=== PATIENT | female | born 1945 | race Caucasian/White ===

== ENCOUNTER → 2020-10-09 12:00 | Outpatient (CLI) | payer MEDICARE, OTHER, SELFPAY ==
[2020-10-09 13:06] LABS: Add Manual Diff / Slide Review NO; Basophils Absolute Auto 100 /uL (0-100); Eosinophils Absolute Auto 200 /uL (0-450); Eosinophils Percent Auto 3.2 % (2-4); Hemoglobin 15.2 g/dL (12.0-16.0); Lymphocytes Absolute Auto 1900 /uL (1100-4500); Lymphocytes Percent Auto 36.7 % (25-40); Mean Corpuscular HGB Conc 34.5 % (30-36); Mean Corpuscular Hemoglobin 32.3 PG (26-34); Mean Corpuscular Volume 93.4 fL (80-100); Monocytes Absolute Auto 500 /uL (0-900); Neutrophils Absolute Auto 2500 /uL (1500-7000); Neutrophils Percent Auto 49.1 % (50-75); Platelet Count 224 X10^3/uL (150-400); Red Blood Cell Count 4.71 X10^6/uL (4.0-5.2); White Blood Cell Count 5.1 X10^3/uL (4.5-11.0)
[2020-10-09 13:12] LABS: Alanine Aminotransferase 21 IU/L (<35); Albumin 4.2 g/dL (3.5-5.0); Albumin Globulin Ratio 1.3 (1.0-2.8); Alkaline Phosphatase 68 U/L (38-126); Aspartate Aminotransferase 30 IU/L (14-36); Bilirubin Total 0.8 mg/dL (0.2-1.3); Blood Urea Nitrogen 7 mg/dL (7-17); Calcium 9.6 mg/dL (8.4-10.2); Carbon Dioxide 29 mmol/L (22-32); Chloride 98 mmol/L (98-107); Cholesterol 212 mg/dL (140-199); Estimated Glomerular Filt Rate > 60.0 mL/min (>60); Globulin 3.2 g/dL (1.7-4.1); Glucose 104 mg/dL (80-110); HDL Cholesterol 76 mg/dL (40-60); HEMOLYSIS < 15 (0-50); LDL Cholesterol Calculated 116 mg/dL (<100); Potassium 4.8 mmol/L (3.4-5.1); Sodium 133 mmol/L (137-145); Total Protein 7.4 g/dL (6.3-8.2); Triglycerides 102 mg/dL (35-150)
== END ==
PROVIDERS: Family Provider Internal Medicine; PCP Internal Medicine; Referring Provider Internal Medicine; Visit Provider Internal Medicine
DX: E78.2 Mixed hyperlipidemia (principal); I10 Essential (primary) hypertension; K76.0 Fatty (change of) liver, not elsewhere classified; R94.5 Abnormal results of liver function studies
CPT/HCPCS: 36415; 80053; 80061; 84443; 85025

== ENCOUNTER → 2022-01-09 10:22 | Outpatient (CLI) | payer MEDICARE, OTHER, SELFPAY ==
--- NOTE | 2022-01-09 10:24 | DI.US.S_ITS ---
PROCEDURE: US HIP LIMITED INDICATIONS: PALPABLE LUMP RIGHT HIP TECHNIQUE: Real-time focused scanning was performed of the abdomen, with image documentation. COMPARISON: None. FINDINGS: At the patient indicated area of clinical concern, the soft tissues about the right hip, an avascular oblong structure with fine linear striations is present measuring 3.4 x 1.4 x 4.2 cm. It is approximately 1-2 mm deep to the skin surface. IMPRESSION: A 4.2 cm mass is present in the soft tissues about the right hip corresponding to the patient indicated area of concern. 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 Clinical follow-up is recommended and if the finding increases in size or the patient develops symptoms such as pain, a repeat examination or MRI could be obtained. Dictated by: Rm Campos M.D. on 01/09/2022 at 21:32 Approved by: Rm Campos M.D. on 01/09/2022 at 21:35
== END ==
PROVIDERS: Family Provider Internal Medicine; PCP Internal Medicine; Referring Provider Internal Medicine; Visit Provider Internal Medicine
DX: R22.2 Localized swelling, mass and lump, trunk (principal)
CPT/HCPCS: 76705

== ENCOUNTER 2024-07-16 14:58 | Emergency (ER) | payer MEDICARE, OTHER, SELFPAY ==
[2024-07-16] VITALS (11 sets, daily range): BP systolic 159–198; BP diastolic 76–95; PULSE 76–91; RESP 16–38; TEMP 36.6; O2SAT 88–99; BMI 26.7
--- NOTE | 2024-07-16 15:11 | DI.RAD.S_ITS ---
PROCEDURE: XR CHEST 1V INDICATIONS: chest pain TECHNIQUE: One view of the chest was acquired. COMPARISON: None. FINDINGS: Surgical changes and devices: None. Lungs and pleura: Lungs are clear. No pleural effusions or pneumothorax. Mediastinum: Mediastinal contours appear normal. Heart size is normal. Bones and chest wall: No suspicious bony lesions. Overlying soft tissues appear unremarkable. IMPRESSION: No acute cardiopulmonary abnormality is seen. Dictated by: Ata Boone M.D. on 07/16/2024 at 15:56 Approved by: Ata Boone M.D. on 07/16/2024 at 15:58
--- NOTE | 2024-07-16 15:33 | EKG_ITS ---
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
[2024-07-16 15:34] LABS: Add Manual Diff / Slide Review NO; Basophils Absolute Auto 100 /uL (0-100); Basophils Percent Auto 1.1 % (0-2); Eosinophils Absolute Auto 0 /uL (0-450); Eosinophils Percent Auto 0.3 % (2-4); Hematocrit 47.7 % (36-46); Hemoglobin 16.5 g/dL (12.0-16.0); Lymphocytes Absolute Auto 1400 /uL (1100-4500); Lymphocytes Percent Auto 21.7 % (25-40); Mean Corpuscular HGB Conc 34.6 % (30-36); Mean Corpuscular Hemoglobin 31.9 PG (26-34); Mean Corpuscular Volume 92.3 fL (80-100); Monocytes Absolute Auto 600 /uL (0-900); Monocytes Percent Auto 8.5 % (3-14); Neutrophils Absolute Auto 4500 /uL (1500-7000); Neutrophils Percent Auto 68.4 % (50-75); PTT Partial Thromboplastin Tim 38 SECONDS (25.1-36.5); Platelet Count 287 X10^3/uL (150-400); Red Blood Cell Count 5.16 X10^6/uL (4.0-5.2); White Blood Cell Count 6.6 X10^3/uL (4.5-11.0)
[2024-07-16 16:09] LABS: Appearance Urine UA CLEAR; Bilirubin Urine UA 1+ (NEGATIVE); Color Urine UA YELLOW; Glucose Urine UA NEGATIVE (Negative); Ketones Urine UA 1+ (NEGATIVE); Leukocyte Esterase Urine UA TRACE (NEGATIVE); Nitrite Urine UA NEGATIVE (Negative); Occult Blood Urine UA NEGATIVE (Negative); Protein Urine UA 2+ (Negative); Specific Gravity Urine UA 1.025 (1.000-1.035); Urobilinogen Urine UA 0.2 E.U./dL (0.2)
[2024-07-16 16:12] LABS: Alanine Aminotransferase 19 IU/L (<35); Albumin 4.7 g/dL (3.5-5.0); Albumin Globulin Ratio 1.7 (1.0-2.8); Alkaline Phosphatase 73 U/L (38-126); Aspartate Aminotransferase 27 IU/L (14-36); Bilirubin Total 0.7 mg/dL (0.2-1.3); Blood Urea Nitrogen 9 mg/dL (7-17); Calcium 9.8 mg/dL (8.4-10.2); Carbon Dioxide 24 mmol/L (22-32); Chloride 95 mmol/L (98-107); Creatine Kinase 46 U/L (30-135); Estimated Glomerular Filt Rate > 60 mL/min (>60); Globulin 2.8 g/dL (1.7-4.1); Glucose 105 mg/dL (80-110); HEMOLYSIS 16 (0-50); Lipase 78 U/L (23-300); Magnesium 1.5 mg/dL (1.6-2.3); Potassium 4.4 mmol/L (3.4-5.1); Sodium 130 mmol/L (137-145); Total Protein 7.5 g/dL (6.3-8.2)
[2024-07-16 16:24] LABS: NT-proBNP (BNP-Adult 18+) 241 pg/mL (<450); Troponin I < 0.012 ng/mL (0.01-0.034)
[2024-07-16 16:39] LABS: Bacteria Urine Few (2-10); Ictotest Urine Negative (Negative); RBC Urine None Seen (0-5/HPF); Squamous Epithelial Cell Urine 5-10 /HPF (0-5/HPF); Urine Volume 10mL (spun); WBC Urine 1-5/HPF (0-5/HPF)
[2024-07-16 16:40] LABS: Culture Indicated Urine Cult Not Indicated
--- NOTE | 2024-07-16 19:34 | PC.NURSE ---
Patient states she has had difficulty swallowing for the last week. She feels when she eats the food wont go down and she starts to feel pressure in the chest.
--- NOTE | 2024-07-16 19:41 | PC.NURSE ---
Patient states all her symptoms relate back to eating.
--- NOTE | 2024-07-16 20:13 | ED.DIZZY ---
HPI - Dizziness General Chief Complaint: Dizziness Stated Complaint: dizzy, off balance, vomitting Time Seen by Provider: 07/16/24 20:13 History of Present Illness HPI Narrative: 78-year-old female with a past medical history of hypertension hyperlipidemia presents to the emergency department for multiple complaints. She states that she has been having intermittent dizziness that she describes as feeling off balance ongoing for the past several years, she states that she has been talking with her primary care doctor, Dr. Mendez about this for the past 3 years, she states that they are unsure of what is causing it however she states that she feels like it has been increasing over the past several months. She is also complaining that she is feeling globus sensation whenever she is swallowing her food, she states that it is difficult to swallow thicker foods has been having to drink/eat more liquid, she states that this has been ongoing persistent for the past several months as well but gotten worse over the past week. She denies any other symptoms such as headache visual disturbances chest pain shortness breath fever chills nausea vomiting abdominal pain or any other GI/ symptoms at this time. Related Data Previous Rx's Medication Instructions Recorded hydrocodone 5 mg-acetaminophen 325 2 tab PO Q6H PRN pain #10 tabs 01/22/22 mg tablet famotidine 20 mg tablet (Pepcid) 20 mg PO DAILY 1 month #30 tabs 07/16/24 meclizine 25 mg tablet 25 mg PO BID PRN dizziness 1 week 07/16/24 #14 tabs Allergies Allergy/AdvReac Type Severity Reaction Status Date / Time shellfish derived Allergy Intermediate Anaphylaxis Verified 01/25/22 10:57 ? lisinopril AdvReac Intermediate heart Verified 01/25/22 10:57 fluttering, dizziness, legs numb after 3 days bee stings Allergy Intermediate Swelling Uncoded 01/25/22 10:57 histamines Allergy Intermediate Unknown Uncoded 01/25/22 10:57 Review of Systems Review of Systems Narrative: General: Denies fever, chills, weight loss HEENT: Denies headache, eye drainage, eye irritation, head trauma, sore throat, voice change Cardiovascular: Denies any chest pain, palpitations, tachycardia Respiratory: Denies any shortness of breath, cough, wheeze, stridor GI/: Positive globus sensation with swallowing Denies any abdominal pain, nausea, vomiting, diarrhea, bright red blood per rectum, melanotic stools, urinary frequency, urinary retention, dysuria, hematuria MSK: Denies any joint pain, muscle pains, swelling Skin: Denies any rashes, lesions, discoloration Neuro: Positive lightheadedness, dizziness Psych: Denies SI/HI Patient History Medical History Abnormal LFTs Essential hypertension Fatty (change of) liver, not elsewhere classified Hyperlipidemia, mixed (02/20/12) Psoriasis Unspecified asthma, uncomplicated Surgical History S/P cataract extraction Social History Smoking Status: Former smoker Smoking Status: Former smoker Exam Narrative Exam Narrative: General: Cooperative, comfortable, well-developed, not in acute distress HEENT: Normocephalic, atraumatic, PERRLA, normal sclera, eyelids normal, Neck: Active full range of motion, atraumatic Chest: Normal to inspection, negative crepitus, no overlying erythema ecchymosis Respiratory: Normal respiratory effort, not in acute respiratory distress, clear to auscultation bilaterally negative cough, wheeze, tachypnea, rhonchi, rales Cardiology: Regular rate rhythm negative gallop, murmur, rubs GI/: Normal to inspection, soft, nonrigid, no tenderness to palpation, exam deferred MSK: Full range of active range of motion of all 4 extremities, atraumatic Skin: No rashes lesions noted Neuro: NIH of 0, no focal deficits Alert awake oriented x3, moves all 4 extremities spontaneously, cranial nerves intact, able to answer all questions appropriately follows commands appropriately Psych: Cooperative, negative suicidal or homicidal ideations Initial Vital Signs Initial Vital Signs: Vital Signs Temperature 97.8 F 07/16/24 15:01 Pulse Rate 91 H 07/16/24 15:01 Respiratory Rate 16 07/16/24 15:01 Blood Pressure 189/95 H 07/16/24 15:01 Pulse Oximetry 99 07/16/24 15:01 Oxygen Delivery Method Room Air 07/16/24 15:01 Course Orders Ordered: ED Orders 07/16/24 15:11 XR chest 1V Stat EKG-12 Lead Stat 07/16/24 15:15 Complete Blood Count AUTO DIFF Stat PTT Partial Thromboplastin Adams Stat Prothrombin Time INR Stat 07/16/24 15:30 Ictotest Urine Stat Urinalysis and Microscopic Stat 07/16/24 15:50 Comprehensive Metabolic Panel Stat Lipase Stat Magnesium Stat NT-proBNP (BNP-Adult 18+) Stat Troponin & CK Cardiac Panel Stat 07/16/24 20:13 CT angio head and neck Stat CT head/brain wo con Stat Discontinued Medications Famotidine (Famotidine 20 Mg/2 Ml Vial) 20 mg IV NOW ONE Stop: 07/16/24 20:21 Last Admin: 07/16/24 20:33 Dose: 20 mg Documented By: MR Vital Signs Vital signs: Vital Signs - 8 hr 07/16/24 15:01 07/16/24 19:18 07/16/24 19:19 Temperature 97.8 F Pulse Rate 91 H 79 Respiratory Rate 16 Blood Pressure 189/95 H Pulse Oximetry 99 88 L 96 Oxygen Delivery Method Room Air 07/16/24 19:19 07/16/24 19:30 07/16/24 19:31 Temperature Pulse Rate 85 84 Respiratory Rate 25 H 28 H Blood Pressure 198/94 H Pulse Oximetry 97 97 Oxygen Delivery Method 07/16/24 19:31 07/16/24 20:00 07/16/24 20:00 Temperature Pulse Rate 89 Respiratory Rate 38 H Blood Pressure 159/76 H 181/86 H Pulse Oximetry 98 Oxygen Delivery Method 07/16/24 20:34 07/16/24 20:34 Temperature Pulse Rate 84 Respiratory Rate 25 H Blood Pressure 186/88 H Pulse Oximetry 96 Oxygen Delivery Method MDM - Dizziness Differential Diagnosis Differential diagnosis: Likely other (Electrolyte abnormality, esophageal spasm, CVA, BPPV, ACS,) Lab Data 07/16/24 15:15 07/16/24 15:50 Labs: Lab Results 07/16/24 07/16/24 07/16/24 Range/Units 15:15 15:30 15:50 WBC 6.6 (4.5-11.0) X10^3/uL RBC 5.16 (4.0-5.2) X10^6/uL Hgb 16.5 H (12.0-16.0) g/dL Hct 47.7 H (36-46) % MCV 92.3 (80-100) fL MCH 31.9 (26-34) PG MCHC 34.6 (30-36) % RDW 13.0 (11.6-14.8) % Plt Count 287 (150-400) X10^3/uL Neut % (Auto) 68.4 (50-75) % Lymph % (Auto) 21.7 L (25-40) % [place] % (Auto) 8.5 (3-14) % Eos % (Auto) 0.3 L (2-4) % Baso % (Auto) 1.1 (0-2) % Neut # (Auto) 4500 (9387-0911) /uL Lymph # (Auto) 1400 (5103-1098) /uL [place] # (Auto) 600 (0-900) /uL Eos # (Auto) 0 (0-450) /uL Baso # (Auto) 100 (0-100) /uL PT 11.0 (9.4-12.5) SECONDS INR 1.0 (0.9-1.3) APTT 38 H (25.1-36.5) SECONDS Sodium 130 L (137-145) mmol/L Potassium 4.4 (3.4-5.1) mmol/L Chloride 95 L (98-107) mmol/L Carbon Dioxide 24 (22-32) mmol/L BUN 9 (7-17) mg/dL Creatinine 0.53 (0.52-1.04) mg/dL Estimated GFR > 60 (>60) mL/min BUN/Creatinine Ratio 17.0 (6-22) Glucose 105 (80-110) mg/dL Calcium 9.8 (8.4-10.2) mg/dL Magnesium 1.5 L (1.6-2.3) mg/dL Total Bilirubin 0.7 (0.2-1.3) mg/dL AST 27 (14-36) IU/L ALT 19 (<35) IU/L Alkaline Phosphatase 73 (38-126) U/L Total Creatine Kinase 46 (30-135) U/L Troponin I < 0.012 (0.01-0.034) ng/mL NT-Pro-B Natriuret Pep 241 (<450) pg/mL Total Protein 7.5 (6.3-8.2) g/dL Albumin 4.7 (3.5-5.0) g/dL Globulin 2.8 (1.7-4.1) g/dL Albumin/Globulin Ratio 1.7 (1.0-2.8) Lipase 78 (23-300) U/L Urine Color Yellow Urine Appearance Clear Urine pH 6.0 (4.5-8.0) Ur Specific [place] 1.025 (1.000-1.035) Urine Protein 2+ H (Negative) Urine Glucose (UA) Negative (Negative) g/dL Urine Ketones 1+ H (NEGATIVE) Urine Occult Blood Negative (Negative) Urine Nitrate Negative (Negative) Urine Bilirubin 1+ H (NEGATIVE) Ur Bilirubin Confirm Negative (Negative) Urine Urobilinogen 0.2 (0.2) E.U./dL Ur Leukocyte Esterase Trace H (NEGATIVE) Urine RBC None seen (0-5/HPF) Urine WBC 1-5/hpf (0-5/HPF) Ur Squamous Epith Cells 5-10 /hpf H (0-5/HPF) Urine Bacteria Few (2-10) H (None) Ur Culture Indicated? Cult not indicated Vol Urine Centrifuged 10ml (spun) Urine Dip Bedside Urine Glucose Negative Bedside Urine Bilirubin - Negative Bedside Urine Ketone + 15 Urine Specific [place] 1.020 Bedside Urine Occult Blood - Negative Bedside Urine pH 6.0 Bedside Urine Protein + 30 Bedside Urine Urobilinogen - Negative Bedside Urine Nitrite - Negative Bedside Urine Leukocytes - Negative Esterase Imaging Data Chest x-ray: Radiologist's Impression: [address] [address] XRay Report Signed Patient: Samantha Belle MR#: [id number] : 1945 Acct:[id number] Age/Sex: 78 / F Date of Service: 07/16/24 Loc: ED Accession Number: [id number] Procedure: XR chest 1V Ordering Provider: Elisabeth Dean D.O. PROCEDURE: XR CHEST 1V INDICATIONS: chest pain TECHNIQUE: One view of the chest was acquired. COMPARISON: None. FINDINGS: Surgical changes and devices: None. Lungs and pleura: Lungs are clear. No pleural effusions or pneumothorax. Mediastinum: Mediastinal contours appear normal. Heart size is normal. Bones and chest wall: No suspicious bony lesions. Overlying soft tissues appear unremarkable. IMPRESSION: No acute cardiopulmonary abnormality is seen. CT scan - head: Radiologist's Impression: [address] [address] [address] Scan Report Signed Patient: Samantha Belle MR#: [id number] : 1945 Acct:[id number] Age/Sex: 78 / F Date of Service: 07/16/24 Loc: ED Accession Number: [id number] Procedure: CT head/brain wo con Ordering Provider: Ernie Cohen D.O. PROCEDURE: CT HEAD/BRAIN WO CON INDICATIONS: Dizziness TECHNIQUE: Noncontrast 4.5 mm thick angled axial sections acquired from the foramen magnum to the vertex, with coronal and sagittal reformats. For radiation dose reduction, the following was used: automated exposure control, adjustment of mA and/or kV according to patient size. COMPARISON: None. FINDINGS: Image quality: Diagnostic CSF spaces: Basal cisterns are patent. Lateral ventricles are symmetric. Volume: Vascular calcifications. Periventricular white matter disease is commonly seen with chronic microangiopathy. Volume loss is present. These findings are moderate Brain: No intracranial hemorrhage. Morrison-white differentiation is grossly maintained. Craniofacial structures: No displaced fracture. Sinuses are clear. Orbits are intact. IMPRESSION: No acute intracranial pathology. If there is high concern for infarct, consider MRI CTA - brain/neck: Radiologist's Impression: [place] [id number] CT Scan Report Signed Patient: Samantha Belle MR#: [id number] : 1945 Acct:[id number] Age/Sex: 78 / F Date of Service: 07/16/24 Loc: ED Accession Number: [id number] Procedure: CT angio head and neck Ordering Provider: Ernie Cohen D.O. PROCEDURE: CT ANGIO HEAD AND NECK INDICATIONS: Dizziness TECHNIQUE: After the administration of intravenous contrast, 1 mm thick sections acquired from the aortic arch through the [place] of [place]. 3-dimensional yptftpd-coxlrczrr-reglrkfnys (MIP) and/or volume rendering reformats were acquired of the central intracranial vasculature and neck separately. For radiation dose reduction, the following was used: automated exposure control, adjustment of mA and/or kV according to patient size. COMPARISON: None. FINDINGS: Image quality: Diagnostic HEAD ANGIOGRAPHY: Anterior circulation: ICAs: Mild cavernous and supraclinoid calcifications ACAs: Patent. MCAs: Normal and symmetric AComm: No aneurysm Venous sinuses: Not well assessed on this study, no occlusive thrombus Posterior circulation: Dominance: Right Vertebral arteries: Moderate focal intracranial calcifications bilaterally Basilar artery: Patent PComms: No aneurysm specialized language instructor: Patent NECK ANGIOGRAPHY: Aortic arch and subclavian arteries: Mild calcifications CCAs: Patent ICA origins (by NASCET criteria): No hemodynamically significant narrowing. ICAs: No stenosis, occlusion or aneurysm. ECAs: Origins are patent. Vertebral arteries: Patent Soft tissues: No significant mass, aneurysm, or lymphadenopathy Lung apices: No pneumothorax Bones: Degenerative changes. No aggressive appearing osseous finding. IMPRESSION: No high-grade stenosis or large vessel occlusion. Moderate focal calcifications seen focally in the vertebral arteries. Lower grade atherosclerotic calcifications seen elsewhere. If there is high concern for infarct, consider MRI. Any quantitative measurements of stenosis were performed using NASCET criteria. ECG Data Interpretation: EKG interpreted ED physician sinus 83 beats per minute QTC [address] changes no STEMI MDM Narrative Medical decision making narrative: 78-year-old female with a past medical history of hypertension hyperlipidemia presents for multiple complaints. States that she has been having intermittent dizziness for the past 3 years states that is it getting worse over the past 3 months states that she has had fall secondary to this. However patient is able to stand bear weight ambulate unassisted here in the emergency department. On exam NIH of 0 no focal deficits. She is also complaining of bolus sensation when swallowing has been ongoing present for the past several months but worsening over the past week, she states that whenever she eats thicker foods she has difficulty swallowing feels like it is not able to go down and then she ends up throwing up. However she is able to tolerate p.o. liquids here in the emergency department. Patient had EKG without any ischemic changes troponin negative lab work without any signs of leukocytosis magnesium only slightly depressed at 1.5 otherwise remainder of lab work unremarkable, urinalysis not consistent with acute urinary tract infection, patient without any cardiopulmonary abnormalities on chest x-ray, patient with CT head CTA head and neck no acute findings. Patient will be sent home with meclizine and famotidine for symptomatic relief instructed to follow up with ENT primary care and GI in outpatient setting patient is able to stand bear weight with her walker which is her baseline strict return precautions given she verbalized understanding of this and agrees to being discharged home with outpatient follow up Discharge Plan Departure Patient Disposition: Home Clinical Impression: Esophageal spasm, Dizziness Activity Restrictions/Additional Instructions: Please follow up with Gastroenterology, and your primary care doctor Please read the discharge instructions sheet carefully and bring all papers to all doctor follow-up visits, as it may contain information that your doctor may want to see. Disease processes change and evolve, if your symptoms worsen or if you develop any new symptoms that are concerning to you please return for evaluation. Your evaluation today does not show any evidence of any life-threatening/serious illnesses requiring admission to the hospital or surgery. Please follow-up with your doctor for re-evaluation in approximately 1 day. Seek immediate medical attention for any worrisome symptoms. *If you do not have a primary care provider please contact the [facility] Resource line at [phone]. They will ask some questions about your medical history and help get you set up with a doctor in the community. Prescriptions: New famotidine [Pepcid] 20 mg tablet 20 mg PO DAILY 30 Days Qty: 30 0RF meclizine 25 mg tablet 25 mg PO BID PRN (Reason: dizziness) 7 Days Qty: 14 0RF No Action hydrocodone-acetaminophen 5-325 mg tablet 2 tab PO Q6H PRN (Reason: pain) Qty: 10 0RF Rx Instructions: May take 1-2 tabs every 6 hours for pain. Do not take with Tylenol/acetaminophen (may take INSTEAD of this medication). Alternate with 600 mg Advil/ibuprofen/motrin every 6 hours. Take colace 100 mg twice daily to prevent constipation. Call office with questions/concerns. Referrals: Vincent Mendez MD [Primary Care Provider] - Stand Alone Forms: Patient Portal/API/Survey
[2024-07-16] MEDS: FAMOTIDINE 20 MG/2 ML VIAL IV (20:33)
--- NOTE | 2024-07-16 21:13 | PC.NURSE ---
Patient placed back on monitor
== END 2024-07-16 21:49 | disposition home or self-care (01) ==
PROVIDERS: Emergency Medicine; Emergency Provider Student in an Organized Health Care Education/Training Program; Family Provider Internal Medicine; PCP Internal Medicine
DX: K22.4 Dyskinesia of esophagus (principal); R42 Dizziness and giddiness; R07.9 Chest pain, unspecified
CPT/HCPCS: 36415; 70450; 70496; 70498; 71045; 80053; 81001; 81003; 82550; 83690; 83735; 83880; 84484; 85025; 85610; 85730; 93005; 96374; 99284; Q9967

== ENCOUNTER → 2024-07-26 12:25 | Outpatient (CLI) | payer MEDICARE, OTHER, SELFPAY ==
--- NOTE | 2024-07-26 12:26 | DI.CT.S_ITS ---
PROCEDURE: CT ABDOMEN W CON INDICATIONS: regurgitation after eating. TECHNIQUE: After the administration of intravenous contrast, 5 mm thick sections acquired from the diaphragms to the iliac crests. 5 mm thick coronal and sagittal reformats were acquired. For radiation dose reduction, the following was used: automated exposure control, adjustment of mA and/or kV according to patient size. COMPARISON: None. FINDINGS: Image quality: Diagnostic. Lower Chest: Moderate size hiatal hernia is seen. Heart size is mildly enlarged, no pericardial effusion. Bilateral lung bases are clear. ABDOMEN: Liver: No solid mass. Gallbladder: No radiopaque gallstones or wall thickening. Biliary ducts: No biliary dilation. Pancreas: No ductal dilation. Spleen: Size is within normal limits. Adrenal Glands: No adrenal nodules. Kidneys and Ureters: No hydronephrosis. No solid mass. No complex renal cystic lesion which requires follow up. Stomach and Bowel: Questionable proximal gastric wall thickening. Normal colonic caliber, without significant wall thickening. Colonic diverticulosis without CT evidence of acute diverticulitis. Peritoneum: No abnormal intraperitoneal fluid. No free air. Ventral Wall: No hernia. Abdominal Nodes: No retroperitoneal or mesenteric adenopathy by size criteria. Vessels: Aorta and inferior vena cava are normal in size. Bones: No aggressive osseous abnormality. Degenerative endplate changes are noted throughout lower thoracic and lumbar spine. IMPRESSION: 1. Moderate size hiatal hernia. Questionable gastric wall thickening concerning for infectious inflammatory gastritis versus under distension. GI correlation is recommended. 2. No bowel obstruction. No other area of abnormal bowel wall thickening. Colonic diverticulosis without CT evidence of acute diverticulitis. No free fluid or free air. Dictated by: Martín Vasquez M.D. on 07/26/2024 at 14:11 Approved by: Martín Vasquez M.D. on 07/26/2024 at 14:14
--- NOTE | 2024-07-26 12:26 | DI.RAD.S_ITS ---
PROCEDURE: FL BARIUM SWALLOW INDICATIONS: dysphagia COMPARISON: None. FINDINGS: It is noted patient vomited multiple times during the examination. Function: There is mild delay of contrast from the distal esophagus through the gastroesophageal junction.. No elicited gastroesophageal reflux. There is delays transit of a calibrated barium tablet through the esophagus into the stomach at the gastroesophageal junction. Hiatal hernia. Morphology: Air-contrast images demonstrate appearance of mild mucosal lucencies within the distal esophagus.. Single contrast views show no esophageal strictures, extrinsic mass effects, or diverticula. Limited images of the stomach demonstrate normal appearance. IMPRESSION: No visualized appearance of obstruction although slow transit of contrast through the distal esophagus to the gastroesophageal junction and stomach. Mucosal irregularities within the distal esophagus overall nonspecific. This may be inflammatory in nature such as esophagitis. However, direct visualization with endoscopy is recommended. Dictated by: Roxy Mendieta M.D. on 07/26/2024 at 16:48 Approved by: Roxy Mendieta M.D. on 07/26/2024 at 16:50
== END ==
PROVIDERS: Family Provider Internal Medicine; PCP Internal Medicine; Referring Provider Internal Medicine; Visit Provider Internal Medicine
DX: K44.9 Diaphragmatic hernia without obstruction or gangrene (principal); K57.90 Diverticulosis of intestine, part unspecified, without perforation or abscess without bleeding; R13.10 Dysphagia, unspecified; R11.2 Nausea with vomiting, unspecified
CPT/HCPCS: 74160; 74220; Q9967

== ENCOUNTER 2024-08-06 09:22 | Day surgery (SDC) | payer MEDICARE, OTHER, SELFPAY ==
[2024-08-06] VITALS (8 sets, daily range): BP systolic 129–157; BP diastolic 78–88; PULSE 65–78; RESP 11–22; TEMP 36.3–36.4; O2SAT 90–98
--- NOTE | 2024-08-06 | PATH_ITS ---
[facility] Accession Number: [id number] No. of containers..01 Tissue . 01 Material submitted: . esophagus, E-G Junction - GE JUNCTION STRICTURE X 2 . 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 No lymphovascular or perineural invasion identified. MRV 08/11/2024 1606 Local . 01 Comment: As part of ongoing quality improvement manager, this case is also reviewed by Dr. Rodolfo Faust, who agrees with the interpretation. . The findings were called to the provider, Dr. Lynch on at [address] Alcantar. . 01 Electronically signed: . Carly Alcantar MD, Pathologist NPI- [id number] . 01 Gross description: . GE JUNCTION STRICTURE X 2: Received in formalin are 4 fragment(s) of sifuentes, soft tissue measuring 0.2 x 0.1 x 0.1 cm to 0.4 x 0.3 x 0.2 cm submitted entirely in 1 cassette(s) /MARSHA 08/07/2024 0120 Local . 01 Microscopic: . Immunostains are performed and the malignant cells are postivie for KALYANI and CK7 and focally positive for CK20. The malignant cells are also positive for SATB2 and villin and negative for CDX2. In addition- P40, GATA3, PAX8, and SOX-10 immunostains are negative, arguing against squamous cell carcinoma, mammary and bladder primary, Mullerian primary, and melanoma. HER2 stain is negative (0) by immunohistochemical analysis. All controls stain appropriately. . * This test was developed and the performance characteristics were validated by [employer]. It has not been cleared or approved by the U.S. Food and Drug Administration. . 01 Pathologist provided ICD-10: C15.9 . 01 CPT . 735198, B49247, O36632 Specimen Comment: A courtesy copy of this report has been sent to [facility] Pathology Performed at: [address] [id number] MD Logan Huertas MD Phone: [phone]
[2024-08-06] MEDS: LACTATED RINGERS 1,000 ML 42 ML IV (09:51)
--- NOTE | 2024-08-06 10:47 | P.HP_ITS ---
History of Present Illness History of Present Illness Date Patient Seen: 08/06/24 Time Patient Seen: 10:47 Chief complaint: EGD w/poss bx Narrative: 78-year-old white female with greater than 1 month of dysphagia to liquids and solids by history, only by solids according to the EGD with delayed esophageal transit. She has not been consistently taking her omeprazole or nifedipine because she says she just throws them up after taking them. [facility] Medical History Abnormal LFTs Fatty (change of) liver, not elsewhere classified Unspecified asthma, uncomplicated Essential hypertension Hyperlipidemia, mixed (02/20/12) Psoriasis Surgical History S/P cataract extraction Social History Smoking Status: Former smoker Meds Home Medications and Allergies Home Medications Medication Instructions Recorded Confirmed Type nifedipine 10 mg capsule 10 mg PO TID #30 caps 07/26/24 08/06/24 Rx omeprazole 40 mg capsule,delayed 40 mg PO BID #60 caps 07/26/24 08/06/24 Rx release Allergies Allergy/AdvReac Type Severity Reaction Status Date / Time shellfish derived Allergy Intermediate Anaphylaxis Verified 08/06/24 10:01 ? lisinopril AdvReac Intermediate heart Verified 08/06/24 10:01 fluttering, dizziness, legs numb after 3 days bee stings Allergy Intermediate Swelling Uncoded 08/06/24 10:01 histamines Allergy Intermediate Unknown Uncoded 08/06/24 10:01 Review of Systems Review of Systems ROS: Yes All systems reviewed with the patient and are negative except as otherwise documented Exam Vital Signs (past 8 hours): - 08/06/24 10:08 Temperature 97.5 F L Pulse Rate 78 Respiratory Rate 16 Blood Pressure 130/81 Pulse Oximetry 98 Oxygen Delivery Method Room Air Oxygen Delivery Method Room Air Narrative Exam Narrative: Gen: NAD, sitting comfortably in bed, appears well HEENT: Sclera are anicteric, head is normocephalic and atraumatic, trachea is midline. CV: RRR, no JVD Resp: clear to auscultation bilaterally, equal chest wall movement bilaterally Abd: soft, nontender, normoactive bowel sounds Ext: no edema, full range of motion Neuro: Cranial nerves II-XII grossly intact, no focal deficits Skin: No erythema or ecchymosis Assessment & Plan Assessment and plan (1) Dysphagia: Status: Acute Assessment & Plan narrative: Patient presents for esophagogastroduodenoscopy with biopsy Risks, benefits, alternatives to EGD explained, including but not limited to bowel perforation or other serious complication requiring surgery at less than 1 in 5000 esophagogastroduodenoscopy, abdominal pain, cramping or bleeding and less than 1% of esophagogastroduodenoscopy, and the chances that we find a diagnosis that would require further intervention of about 2%. Patient agrees to proceed. Time-Based Coding :: [TOTAL MINUTES] spent with patient and on the chart (including review of chart, obtaining history, exam, reviewing outside data, placing orders, documenting exam and treatment plan, and counseling patient) on [DATE]. [employer] Document charge(s): No
--- NOTE | 2024-08-06 11:53 | PM.OP.EGD ---
Operative Date/Time/Diagnoses Date of procedure: 08/06/24 Time of procedure: 11:53 Pre-op diagnosis: 1. Dysphagia Post-op diagnosis: other (1. Dysphagia secondary to food bolus impaction and GE junction stricture) Procedure & Clinicians Study performed: 1. Esophagogastroduodenoscopy with biopsies, food bolus disimpaction, dilation of the GE junction with a 20 mm balloon Same procedure as scheduled: Yes Indications: Dysphagia Surgeon: Andres Lynch Procedure Notes SCOAP/Timeout: Performed Procedure in detail: Consent was obtained. Time-out was performed. Bite block was placed. Mac was induced. Gastroscope was inserted into the esophagus which was found to be full of food, despite the patient saying she had been NPO. A Smith net was used to retrieve enough food from the esophagus to visualize the GE junction. The GE junction had a pinhole, benign-appearing stricture. Biopsies were obtained from the stricture. The pin hole was too small for the scope, but could accommodate a wire easily. Wire was placed through the stricture and a balloon was used to dilate the stricture 1st-18 mm, then to 20 mm. The gastroscope was able to traverse into the stomach and 2nd portion of the duodenal. Duodenal appeared normal. Stomach appeared normal. Retroflexed view did not show a significant hiatal hernia. The stricture had some evidence of trauma from a balloon dilation, but no evidence of perforation or bleeding. Additional biopsies of the stricture were obtained. The gastroscope was then removed and the esophagus was inspected and was free from food bolus. Gastroscope was removed and case was completed. Sedation minutes: 46 Findings: stricture (GE junction stricture, benign appearing.) Specimen(s): other (GE junction biopsy) Complications: none Impression: 1. My review of her CT scan showed osteophytes projecting toward the esophagus that could contribute somewhat to her upper symptoms 2. 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 May need repeat EGD.) Follow up: weeks Disposition: PACU
--- NOTE | 2024-08-06 13:35 | SUR.PHASEII ---
Pt arrived to PACU in stable condition. Per Jad Howard CRNA, pt possibly aspirated. See flowsheet for VS. Pt weened off O2 with SpO2 > 95% on RA. LCTAB. Pt and educated on signs\symptoms of aspiration pneumonia, and advised evaluation in ED if symptoms arise. Pt and have extensive questions despite speaking with Dr. Lynch after pt's procedure. Dr. Lynch at bedside to re-explain EGD findings and follow-up recommendation to pt and . Pt states she does not have the financial means to [place] to [facility] nor is her willing to drive that far. This RN discussed alternative options with pt and , including a referral to Dr. Grant's office. Pt agreeable with plan despite possibility that Dr. Grant agrees with Dr. Lynch and higher level of care is needed. This RN contacted [facility] and appointment was made on behalf of patient.
== END 2024-08-06 13:19 | disposition home or self-care (01) ==
PROVIDERS: Family Provider Internal Medicine; PCP Internal Medicine; Referring Provider Surgery; Visit Provider Surgery
PROC: 0DJ08ZZ Inspection of Upper Intestinal Tract, Via Natural or Artificial Opening Endoscopic (ICD-10-PCS; CPT 43249; principal; 2024-08-06 10:30)
DX: C15.9 Malignant neoplasm of esophagus, unspecified (principal); T18.128A Food in esophagus causing other injury, initial encounter
CPT/HCPCS: 43249; 43247; 43239; J2704; J3010

== ENCOUNTER → 2024-08-19 12:14 | Outpatient (CLI) | payer MEDICARE, OTHER, SELFPAY ==
--- NOTE | 2024-08-19 12:16 | DI.CT.S_ITS ---
PROCEDURE: CT CHEST ABD PEL W CON INDICATIONS: new diagnosis esophageal adenocarcinoma TECHNIQUE: After the administration of intravenous contrast, 5 mm thick sections acquired from the lung apices to the symphysis. 5 mm coronal and sagittal reformats were performed, with additional 7 mm MIP reformats through the lungs. For radiation dose reduction, the following was used: automated exposure control, adjustment of mA and/or kV according to patient size. COMPARISON: [facility], CT, CT ABDOMEN W CON, 07/26/2024, 13:41. FINDINGS: Image quality: Excellent. CHEST: Lower Neck: No enlarged lymph nodes. Thyroid: No thyroid nodules which require sonographic follow up, per consensus guidelines. Axillae: No enlarged lymph nodes. Chest Wall: Unremarkable. Lungs and Pleura: No pneumothorax or pleural effusions. No consolidation or suspicious nodules. Heart: Heart size is normal. No pericardial effusion. Thoracic Vessels: The aorta and pulmonary arteries demonstrate normal size. Mediastinum and Susana: No enlarged lymph nodes. Tiny right parasagittal lymph node measuring 0.4 cm, (2/83). Esophagus: The esophagus is filled with food residue and oral contrast. The esophagus is mildly dilated. Mass at the gastric cardia measuring 3.7 x 3.1 cm, (4/59). There is local invasion inferiorly extending approximately 2.1 cm, (4/60). This abuts the splenic artery and pancreas. ABDOMEN: Liver: Small area of ill-defined hypodensity adjacent to the gallbladder. This could represent focal fatty infiltration. Hypodense focus in the right liver, (2/103). Most likely a benign cyst. Gallbladder: No radiopaque gallstones or wall thickening. Biliary ducts: No biliary dilation. Pancreas: No ductal dilation. Spleen: Size is within normal limits. Adrenal Glands: No adrenal nodules. Kidneys and Ureters: No hydronephrosis. No solid mass. No complex renal cystic lesion which requires follow up. Stomach and Bowel: Mass at the gastric cardia as described above. The stomach is not distended. Diverticulosis. Normal appendix. No small bowel obstruction. Peritoneum: No abnormal intraperitoneal fluid. No free air. Ventral Wall: No significant ventral hernia. Abdominal Nodes: -Right retrocrural lymph node measuring 0.9 cm, (2/93). -Left periaortic lymph node measuring 1.1 cm, (2/114). -Left periaortic lymph node measuring 0.8 cm, (2/121). Vessels: Aorta and inferior vena cava are normal in size. PELVIS: Pelvic Organs: Uterus is absent. Enterocele. Bladder: No bladder wall thickening, accounting for underdistention. Pelvic Nodes: No enlarged lymph nodes. Miscellaneous: No inguinal hernias are seen. Bones: No aggressive osseous abnormality. Severe bilateral hip DJD. Multilevel DDD. IMPRESSION: 1. Mass at the gastric cardia measuring approximately 3.7 cm. There is extra luminal invasion inferiorly which abuts the pancreas and splenic artery. The esophagus is dilated and filled with food residue and oral contrast suggesting at least partial obstruction. 2. Retroperitoneal adenopathy. Indeterminate tiny right retrocrural and paraesophageal lymph nodes. 3. Areas of hypodensity in the liver are favored to represent focal fatty infiltration and a small cyst. -Consider further evaluation with MRI liver and/or PET/CT. 4. No suspicious pulmonary nodules identified. Dictated by: Migel Myers M.D. on 08/20/2024 at 11:02 Approved by: Migel Myers M.D. on 08/20/2024 at 11:30
[2024-08-19 12:47] LABS: Estimated Glomerular Filt Rate > 60 mL/min (>60)
== END ==
PROVIDERS: Family Provider Internal Medicine; PCP Internal Medicine; Referring Provider Surgery; Visit Provider Surgery
DX: C15.9 Malignant neoplasm of esophagus, unspecified (principal); R59.0 Localized enlarged lymph nodes; K57.90 Diverticulosis of intestine, part unspecified, without perforation or abscess without bleeding; M16.0 Bilateral primary osteoarthritis of hip; Z90.710 Acquired absence of both cervix and uterus
CPT/HCPCS: 36415; 71260; 74177; 82565; Q9967